=== PATIENT | female | born 1995 | race Caucasian/White ===

== ENCOUNTER 2016-11-01 16:46 | Inpatient (IN) | payer BC ==
[~2016-11-01] VITALS: Ht 160 cm; Wt 62.6 kg
--- NOTE | ~2016-11-01 | HP ---
Unit #: [id number] #: [id number] Patient: LEENA ZURITA [id number] [facility] [address] [place] [address] [id number] MR#: [id number] NAME: LEENA ZURITA ROOM: P183 Age: 21 Sex: F Admission Date: 11/01/2016 : 1995 Attending Physician: Lloyd Wade M.D. Admitting Physician: Lloyd Wade M.D. Primary Care Physician: Primary Care Physician No HISTORY AND PHYSICAL NOTE Leena is a 21 year old who was admitted and discharged within the first 24 hours. She was not seen for an H & P. Dictated by... Imelda Foss P.A.-C. for Sherwin Vargas/brayan TD: 11/02/2016 23:56 JOB #: [id number] HISTORY AND PHYSICAL Page 1 of 1 X Imelda Foss X HISTORY AND PHYSICAL
--- NOTE | ~2016-11-01 | PA ---
Unit #: [id number] #: [id number] Patient: LEENA ZURITA [id number] [place] [address] [id number] MR#: [id number] NAME: LEENA ZURITA ROOM: P183 Age: 21 Sex: F Admission Date: 11/01/2016 : 1995 Date of Assessment: 11/02/2016 Attending Physician: Lloyd Wade M.D. Admitting Physician: Lloyd Wade M.D. Primary Care Physician: Primary Care Physician No PSYCHIATRIC ASSESSMENT DATE OF SERVICE 11/02/2016. INFORMANTS The patient, reliable and OLOP, reliable. CHIEF COMPLAINT Heroin detox. HISTORY OF PRESENT ILLNESS Leena Zurita is a 21-year-old woman, who reports that she has been doing 2 g of heroin daily for the past couple of weeks and having active detox symptomatology. She also fears that she might be , but has not been tested. She was admitted without suicidal ideation, intent, or plan and for opioid detox. PAST PSYCHIATRIC HISTORY The patient has been seen at [facility] in the past. She has no current psychiatric complaints or medications. FAMILY PSYCHIATRIC HISTORY None reported. SOCIAL HISTORY The patient is homeless and is currently unemployed. She has been living at [facility], but has apparently been engaging in illegal activities to support her habits. PAST MEDICAL HISTORY Significant for hepatitis C and the patient suspects that she might be . She has a daughter, who is currently out of her custody. MEDICATIONS None. ALLERGIES Penicillin. SUBSTANCE USE HISTORY As noted above. MENTAL STATUS EXAMINATION Leena presented as a disheveled woman, appearing her stated age. She Unit #: [id number] #: [id number] Patient: LEENA ZURITA was cooperative with the examination. Her speech was soft, but easily understood. Her musculoskeletal examination was calm. Her mood was mildly anxious with a congruent affect. She was alert and fully oriented. Her memory and concentration were fair to good. Her thought processes were goal directed with no active psychosis. She denied suicidal ideation, intent, or plan. Insight and judgment, fair. Fund of knowledge and abstraction, fair. ASSETS AND LIABILITIES The patient knows local resources and presents voluntarily for treatment. Liabilities include possible , difficulty maintaining sobriety, and homeless status. ADMITTING DIAGNOSES AXIS I: Opioid dependence with withdrawal, uncomplicated, F11.23. AXIS II: Diagnosis deferred. AXIS III: Hepatitis C and possible . AXIS IV: AXIS V: PSYCHIATRIC PLAN The patient will be admitted and placed on the opioid detox protocol. Pending laboratory evaluation of possible and her other conditions. She will enroll in psychotherapy groups and activities and physical examination and laboratory studies will be ordered and reviewed. TREATMENT GOALS Resolution of intoxication, improvement in insight, and improvement in coping skills. DISCHARGE PLANNING Follow up with [facility]. ESTIMATED LENGTH OF STAY 5 days. Dictated by... Lloyd Wade M.D. EMILIA/karri TD: 11/02/2016 14:24 JOB #: [id number] PSYCHIATRIC ASSESSMENT Page 1 of 1 X Lloyd Wade MD X PSYCHIATRIC ASSESSMENT
[2016-11-02 12:54] LABS: URINE APPEARANCE CLOUDY; URINE BILIRUBIN NEG (NEG); URINE BLOOD NEG (NEG); URINE COLOR YELLOW; URINE GLUCOSE NEG (NEG); URINE KETONE NEG (NEG); URINE LEUKOCYTE ESTERASE 2+ (NEG); URINE NITRATE POS (NEG); URINE PH 7.5 (5-8); URINE PROTEIN NEG (NEG); URINE SPECIFIC GRAVITY 1.016 (1.003-1.035)
[2016-11-02 13:01] LABS: URBCS1 AUWI 0-2 /[HPF] (0-2); URINE BACTERIA AUWI 4+ (NEGATIVE); URINE SQUAMOUS EPITHELIAL CELL FEW /[HPF]
[2016-11-02 13:29] LABS: AMPHETAMINE NEG (NEG); BARBITURATES NEG (NEG); BENZODIAZEPINES NEG (NEG); COCAINE NEG (NEG); MARIJUANA NEG (NEG); OPIATES POS (NEG); TRICYCLIC ANTIDEPRESSANTS NEG (NEG); U METHADONE NEG (NEG)
== END 2016-11-02 13:41 | DRG 897 ==
LOC: P1E 20:52
PROVIDERS: Psychiatry & Neurology Psychiatry
PROC: HZ2ZZZZ Detoxification Services for Substance Abuse Treatment (ICD-10-PCS; principal; 2016-10-31)
DX: F11.23 Opioid dependence with withdrawal (principal); B19.20 Unspecified viral hepatitis C without hepatic coma; Z88.0 Allergy status to penicillin
CPT/HCPCS: 80307; 81003; 84703